=== PATIENT | male | born 1985 | race Caucasian/White ===

== ENCOUNTER 2023-09-20 12:13 | Emergency (ER) | payer OTHER ==
[~2023-09-20] VITALS: Ht 188 cm; Wt 113.4 kg
[2023-09-20 13:52] VITALS: BP 164/92; TEMP 98.3; O2SAT 99
== END 2023-09-20 13:53 | disposition home or self-care (01) ==
LOC: ER 12:13
DX: S52.592A Other fractures of lower end of left radius, initial encounter for closed fracture (principal); W01.0XXA Fall on same level from slipping, tripping and stumbling without subsequent striking against object, initial encounter; Y93.89 Activity, other specified; Y92.89 Other specified places as the place of occurrence of the external cause; Y99.8 Other external cause status
CPT/HCPCS: 73110